=== PATIENT | female | born 1950 | race Caucasian/White ===

== ENCOUNTER 2016-12-23 17:41 | Emergency (ER) | payer OTHER ==
[~2016-12-23] VITALS: Ht 162.6 cm; Wt 63.5 kg
--- NOTE | 2016-12-23 19:25 | NUR ---
CALLED PT IN [place], NO RESPONSE
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
--- NOTE | 2016-12-23 19:52 | NUR ---
LUCY GONSALVES AT BEDSIDE FOR EVAL.
--- NOTE | 2016-12-23 20:13 | NUR ---
Patient discharged to home in stable condition. Written and verbal after care instructions given. Patient verbalizes understanding of instruction. ambulatory with a steady gait. instructed not to drive. pt verbalize understanding. pt accompanied by
[2016-12-23 20:14] VITALS: BP 158/68
== END 2016-12-23 20:15 | disposition home or self-care (01) ==
LOC: ER 17:49
DX: S00.531A Contusion of lip, initial encounter (principal); S00.83XA Contusion of other part of head, initial encounter; Z88.5 Allergy status to narcotic agent; Z88.8 Allergy status to other drugs, medicaments and biological substances; W01.198A Fall on same level from slipping, tripping and stumbling with subsequent striking against other object, initial encounter; Y93.89 Activity, other specified; Y92.89 Other specified places as the place of occurrence of the external cause; Y99.0 Civilian activity done for income or pay
CPT/HCPCS: 99283; A4606; Z7610